=== PATIENT | male | born 1960 ===

== ENCOUNTER 2016-07-19 10:14 | Emergency (ER) | payer OTHER ==
[2016-07-19 10:34] VITALS: BP 148/89; PULSE 62; RESP 19; TEMP 97.8; O2SAT 99
--- NOTE | 2016-07-19 11:57 | ED PDOC ---
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 denies: Ear(s), Headache Sick Contacts (Context): None Associated Symptoms: Sore Throat, Cough, Nasal Congestion. denies: Fever, Chills, Sputum, Vomiting, Diarrhea Ear Symptoms: Bilateral: None Severity: Mild Pain Scale Rating Of: 3 Additional History Per: Patient <Darling Ren - Last Filed: 07/19/16 12:24> <Isabel Lopez - Last Filed: 07/19/16 12:37> Time Seen by Provider: 07/19/16 11:40 Additional Complaint(s): 56 yo M presents to ED with c/o nasal congestion and sore throat intermittently x 2-3 months. Pt states that every time it snows or the weather gets cold, he feels congestion , and phlegm stuck in the back of his throat, which causes irritation and clearing of the throat with voluntary coughing. Pt has been taking nyquil and tylenol with no relief of symptoms. Went to a friend 2 days ago who was a doctor previously in [place] country, at which time he was told he has a throat infection and was given an unknown injection. Denies fever, chills, ear pain, sinus pain. Family member at bedside states that pt also occasionally gets abdominal pain; this is chronic > 1 year. At this time, pt denies any abdominal pain, N/V/D/C. Pt does not have a PMD and has never been to a doctor. (Darling Ren) Supervising Attending Note - Supervising Attending Note The Documented history was done by the: Physician Plug Cutting Machine Operator, Attending Physician The documented physical exam was done by the: Physician Plug Cutting Machine Operator, Attending Physician The documented procedures were done by the: Physician Plug Cutting Machine Operator, Attending Physician - Attestation: I have personally seen and examined this patient.: Yes I have fully participated in the care of the patient.: Yes I have reviewed all pertinent clinical information, including history, physical exam and plan: Yes <Isabel Lopez - Last Filed: 07/19/16 12:37> Past Medical History Reviewed: Historical Data, Nursing Documentation, Vital Signs - Medical History PMH: No Chronic Diseases - Family History Family History: States: Unknown Family Hx <Darling Ren - Last Filed: 07/19/16 12:24> <Isabel Lopez - Last Filed: 07/19/16 12:37> Vital Signs: Last Vital Signs Temp 97.8 F 07/19/16 10:32 Pulse 62 07/19/16 10:32 Resp 19 07/19/16 10:32 BP 148/89 07/19/16 10:32 Pulse Ox 99 07/19/16 12:28 - Home Medications Home Medications: Ambulatory Orders Medication Instructions Recorded Fluticasone Nasal [Flonase] 2 actuation NS DAILY #1 bottle 07/19/16 Pseudoephedrine HCl [Sudafed 240 mg PO DAILY #10 tab.er.24h 07/19/16 24-Hour] - Allergies Allergies/Adverse Reactions: Allergies Allergy/AdvReac Type Severity Reaction Status Date / Time No Known Allergies Allergy Verified 07/19/16 11:52 Review of Systems Constitutional: Negative for: Fever, Chills ENT: Negative for: Ear Pain Cardiovascular: Negative for: Chest Pain Respiratory: Positive for: Cough. Negative for: Shortness of Breath, SOB with Exertion, Pleuritic Pain, Sputum, Wheezing Gastrointestinal: Negative for: Nausea, Vomiting, Abdominal Pain, Diarrhea, Constipation Musculoskeletal: Negative for: Neck Pain <Darling Ren - Last Filed: 07/19/16 12:24> Physical Exam - Reviewed Nursing Documentation Reviewed: Yes Vital Signs Reviewed: Yes - Physical Exam Appears: Positive for: Non-toxic, No Acute Distress Head Exam: Positive for: NORMAL INSPECTION Skin: Positive for: Normal Color, Warm, Dry Eye Exam: Positive for: Normal appearance, EOMI, PERRL ENT: Positive for: TM Is/Are (clear b/l), Nasal Congestion (with red, swollen turbinates), Other (sinuses nontender). Negative for: Sinus Pain/Drainage, Pharyngeal Erythema, Tonsillar Exudate, Tonsillar Swelling Neck: Positive for: Normal Cardiovascular/Chest: Positive for: Regular Rate, Rhythm Respiratory: Positive for: Normal Breath Sounds. Negative for: Crackles, Rales , Rhonchi, Wheezing, Respiratory Distress Gastrointestinal/Abdominal: Positive for: Normal Exam, Soft. Negative for: Tenderness Neurologic/Psych: Positive for: Alert, Oriented <Darling Ren - Last Filed: 07/19/16 12:24> - ECG O2 Sat by Pulse Oximetry: 99 <Darling Ren - Last Filed: 07/19/16 12:24> Disposition - Disposition Disposition: Routine/Home Disposition Time: 12:26 <Darling Ren - Last Filed: 07/19/16 12:24> <Isabel Lopez - Last Filed: 07/19/16 12:37> - Clinical Impression Clinical Impression: Postnasal drip, Nasal congestion - Disposition Referrals: [facility] [place] [Outside] Condition: GOOD Additional Instructions: Follow up with your doctor in 2-3 days. Debbie stewart en 2-3 desir. Prescriptions: Fluticasone Nasal [Flonase] 2 actuation NS DAILY #1 bottle Pseudoephedrine HCl [Sudafed 24-Hour] 240 mg PO DAILY #10 tab.er.24h Instructions: Allergic Rhinitis (ED) Print Language: AMHARIC
== END 2016-07-19 12:35 | disposition home or self-care (01) ==
LOC: H.ER 10:14
DX: R09.81 Nasal congestion (principal); R09.82 Postnasal drip; J02.9 Acute pharyngitis, unspecified